=== PATIENT | male | born 1995 | race Caucasian/White ===

== ENCOUNTER → 2020-09-11 14:54 | Outpatient (CLI) | payer OTHER, SELFPAY ==
[2020-09-11] MEDS: COVID-19 VACC #1, MRNA(MOD) 100 MCG/0.5 ML VIAL IM (15:02)
== END ==
PROVIDERS: PCP Student in an Organized Health Care Education/Training Program; Visit Provider Internal Medicine
DX: Z23 Encounter for immunization (principal)
CPT/HCPCS: 0011A; 91301

== ENCOUNTER → 2020-10-09 08:28 | Outpatient (CLI) | payer OTHER, SELFPAY ==
[2020-10-09] MEDS: COVID-19 VACC #2, MRNA(MOD) 100 MCG/0.5 ML VIAL IM (08:32)
== END ==
PROVIDERS: PCP Student in an Organized Health Care Education/Training Program; Visit Provider Internal Medicine
DX: Z23 Encounter for immunization (principal)
CPT/HCPCS: 0012A; 91301

== ENCOUNTER → 2022-10-10 15:42 | Outpatient (CLI) | payer OTHER, SELFPAY ==
--- NOTE | 2022-10-10 15:43 | DI.RAD.S_ITS ---
PROCEDURE: XR HAND LT MIN 3V INDICATIONS: left hand injury Monday/left hand pain TECHNIQUE: 3 views of the hand(s) acquired. COMPARISON: None. FINDINGS: Bones: No fractures or dislocations. Carpal bones are normally aligned. No suspicious bony lesions. Soft tissues: No suspicious soft tissue calcifications. IMPRESSION: Unremarkable left hand radiographs Approved by: Freddie Fabian M.D. on 10/10/2022 at 18:22
== END ==
PROVIDERS: PCP Student in an Organized Health Care Education/Training Program; Referring Provider Student in an Organized Health Care Education/Training Program; Visit Provider Student in an Organized Health Care Education/Training Program
DX: M79.642 Pain in left hand (principal); M79.89 Other specified soft tissue disorders
CPT/HCPCS: 73130

== ENCOUNTER 2023-10-03 09:04 | Emergency (ER) | payer OTHER, SELFPAY ==
[2023-10-03 09:09] VITALS: BP 144/81; PULSE 79; RESP 18; TEMP 36.4; O2SAT 99; BMI 24.3
--- NOTE | 2023-10-03 10:36 | ED.WOUNDLAC ---
HPI - Wound/Laceration General Chief Complaint: Wound/Laceration Stated Complaint: laceration of finger/ R hand Time Seen by Provider: 10/03/23 10:27 Source: patient Mode of arrival: Ambulatory History of Present Illness HPI narrative: Patient here for laceration to the right index finger. Patient is left-handed. Patient accidentally cut his finger with a scraper. Tetanus is up-to-date. Bleeding is controlled. Bases visualized. 1 cm very superficial laceration to the proximal portion of the proximal phalanx of the index finger Related Data Previous Rx's Medication Instructions Recorded citalopram 20 mg tablet (Celexa) 20 mg PO DAILY #90 tabs 05/05/23 guanfacine 3 mg tablet,extended 3 mg PO DAILY #90 tabs 05/05/23 release 24 hr (Intuniv ER) lisdexamfetamine 70 mg capsule 70 mg PO DAILY #30 caps 08/18/23 (Vyvanse) lisdexamfetamine 70 mg capsule 70 mg PO DAILY #30 caps 08/18/23 (Vyvanse) lisdexamfetamine 70 mg capsule 70 mg PO DAILY #30 caps 08/18/23 (Vyvanse) cephalexin 500 mg capsule 500 mg PO TID #15 caps 10/03/23 Allergies Allergy/AdvReac Type Severity Reaction Status Date / Time No Known Drug Allergies Allergy Verified 08/18/23 15:16 Review of Systems Review of Systems Narrative: GENERAL: negative chills, fatigue, malaise, fever, sweats. HEENT: negative sinus pain, ear pain, sore throat RESPIRATORY: negative dyspnea, cough CARDIOVASCULAR: negative chest pain, palpitations GASTROINTESTINAL: negative nausea, vomiting, abdominal pain : negative dysuria, frequency, hematuria MUSCULOSKELETAL: negative muscle or bony pain SKIN: negative rash, skin lesions, positive skin injury NEUROLOGIC: negative weakness, numbness ROS Unobtainable: All systems reviewed & are unremarkable except as noted in HPI and below Patient History Medical History JOHN (generalized anxiety disorder) Male genital ulcer Tremor (~2000) Acne (~2011) Autism spectrum Attention deficit hyperactivity disorder (ADHD), 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) Surgical History Anesthesia Hx of tympanostomy tubes (~1996) Family History Grandfather Age: 76 A-fib Grandmother Age: 76 Cancer Diabetes mellitus Hypertension Grandfather Cancer Diabetes mellitus Hypertension High cholesterol Stroke Grandmother Age: 78 Hypertension High cholesterol Mental health problem Diabetes mellitus Sister Age: 22 Mental health problem Social History Smoking Status: Never smoker Smoking Status: Never smoker alcohol intake frequency: holidays/special occasions only Substance Use Type: does not use Exam Narrative Exam Narrative: GENERAL: in no distress, not toxic not dyspneic HEAD: Normocephalic. EYES: Pupils equal round ENT: Mucous membranes moist. EXTREMITIES: No gross deformities. Examination right hand. There is a very superficial laceration proximal portion thumb side of the proximal phalanx of the index finger it is transverse/oblique. Patient has full active range of motion of the MCP PIP and DP joints of this digit. Base visualized. No fat or muscle or tendon or bony injury seen. No foreign body. No imaging indicated at this time. Bleeding is controlled. NEURO: AOx4. SKIN: Warm and dry PSYCH: Not anxious, is cooperative Initial Vital Signs Initial Vital Signs: Vital Signs Temperature 97.6 F 10/03/23 09:09 Pulse Rate 79 10/03/23 09:09 Respiratory Rate 18 10/03/23 09:09 Blood Pressure 144/81 H 10/03/23 09:09 Pulse Oximetry 99 10/03/23 09:09 Oxygen Delivery Method Room Air 10/03/23 09:09 Procedures Laceration Repair Laceration 1: Time of procedure: 11:01 Site: other (Index finger) Size (cm): 1 Description: linear Depth: simple, single layer Pre-repair: wound explored, irrigated extensively, deep structures intact and cleansed with chlorhexadine Skin layer closed with: other (Dermabond and Steri-Strips) Course Orders Ordered: Discontinued Medications Cephalexin HCl (Cephalexin 250 Mg Capsule) 500 mg PO NOW ONE Stop: 10/03/23 10:46 Last Admin: 10/03/23 11:08 Dose: 500 mg Documented By: FABBY Vital Signs Vital signs: Vital Signs - 8 hr 10/03/23 09:09 Temperature 97.6 F Pulse Rate 79 Respiratory Rate 18 Blood Pressure 144/81 H Pulse Oximetry 99 Oxygen Delivery Method Room Air MDM - Wound/Laceration MDM Narrative Medical decision making narrative: Patient here for laceration to the right index finger. Patient is left-handed. Patient accidentally cut his finger with a scraper. Tetanus is up-to-date. Bleeding is controlled. Bases visualized. 1 cm very superficial laceration to the proximal portion of the proximal phalanx of the index finger After history and exam Keflex wound care Dermabond Steri-Strips aluminum splint, exam is reassuring. No imaging indicated at this time. Low suspicion for fracture or retained foreign body MDM Medical records reviewed: Differential considered: Includes but not limited to laceration tendon injury retained foreign body Imaging studies independently reviewed: None indicated at this time Treatments: Keflex Re-evaluations: Patient tolerated skin repair very well. No strike through bleeding. Wound care instructions provided. Nontoxic at discharge. L and I forms completed. He desires discharge home Discussion: Appropriate for discharge home. Exam is reassuring. This injuries amenable to Dermabond and Steri-Strips and aluminum finger splint. It does not cross over joint. Wound care instructions provided. L and I forms completed. Return precautions reviewed. Antibiotics were started. Patient up-to-date with tetanus. Desires discharge home Diagnosis: Finger laceration Discharge Plan Departure Patient Disposition: Home Clinical Impression: Laceration Instructions: DI for Laceration Repair-Skin Closure Strips, DI for Laceration Repair-Skin Glue, DI for Laceration Repair -- Finger Activity Restrictions/Additional Instructions: Please keep your finger dry for the next 48 hours. You may shower but no soaking of the finger under water. You may trim the paper tape as it curls up. Do not remove them or pale them off. See family doctor in a week for re-evaluation. Call provided primary care referral phone number to establish family doctor. Call [phone]. Prescription antibiotic has been prescribed for you to prevent infection. Please continue this today. Prescription has been sent to your [facility]'s pharmacy Your L and I forms have been completed. No use of the right hand for 5 days to allow for healing. Please keep your finger in splint for the next. However remove it daily to inspect the skin for any redness or discharge or any pain. Return if any changes. Prescriptions: New cephalexin 500 mg capsule 500 mg PO TID Qty: 15 0RF No Action citalopram [Celexa] 20 mg tablet 20 mg PO DAILY Qty: 90 3RF Hold Instructions: trial of 20mg guanfacine [Intuniv ER] 3 mg tablet extended release 24 hr 3 mg PO DAILY Qty: 90 3RF Rx Instructions: Take one tablet once a day. lisdexamfetamine [Vyvanse] 70 mg capsule 70 mg PO DAILY Qty: 30 0RF Rx Instructions: rx 1/3 lisdexamfetamine [Vyvanse] 70 mg capsule 70 mg PO DAILY Qty: 30 0RF Rx Instructions: rx 2/3 lisdexamfetamine [Vyvanse] 70 mg capsule 70 mg PO DAILY Qty: 30 0RF Rx Instructions: rx 3/3 Referrals: Jeri Rojas DO [Primary Care Provider] - Stand Alone Forms: Patient Portal/API, Work Release Note
[2023-10-03] MEDS: cephALEXin 250 MG CAPSULE 500 MG PO (11:08)
[2023-10-03 11:22] VITALS: BP 130/77; PULSE 78; RESP 18; O2SAT 99
== END 2023-10-03 11:23 | disposition home or self-care (01) ==
PROVIDERS: Emergency Provider Emergency Medicine; PCP Family Medicine
DX: S61.210A Laceration without foreign body of right index finger without damage to nail, initial encounter (principal); W27.8XXA Contact with other nonpowered hand tool, initial encounter; Y99.0 Civilian activity done for income or pay
CPT/HCPCS: 12001; 99283

== ENCOUNTER → 2024-09-18 10:16 | Outpatient (CLI) | payer OTHER, SELFPAY ==
[2024-09-18 10:45] LABS: Hemoglobin 15.1 g/dL (13.5-17.5); Mean Corpuscular HGB Conc 34.2 % (30-36); Mean Corpuscular Hemoglobin 29.2 PG (26-34); Mean Corpuscular Volume 85.3 fL (80-100); Platelet Count 283 X10^3/uL (150-400); Red Blood Cell Count 5.16 X10^6/uL (4.5-5.9); Red Cell Distribution Width 12.8 % (11.6-14.8); White Blood Cell Count 4.1 X10^3/uL (4.5-11.0)
[2024-09-18 10:58] LABS: Alanine Aminotransferase 23 IU/L (<50); Albumin 4.9 g/dL (3.5-5.0); Albumin Globulin Ratio 1.8 (1.0-2.8); Alkaline Phosphatase 53 U/L (38-126); Aspartate Aminotransferase 26 IU/L (17-59); Bilirubin Total 0.7 mg/dL (0.2-1.3); Blood Urea Nitrogen 15 mg/dL (9-20); Calcium 9.6 mg/dL (8.4-10.2); Carbon Dioxide 25 mmol/L (22-32); Chloride 103 mmol/L (98-107); Estimated Glomerular Filt Rate > 60 mL/min (>60); Globulin 2.8 g/dL (1.7-4.1); Glucose 108 mg/dL (70-100); HEMOLYSIS < 15 (0-50); Potassium 4.2 mmol/L (3.4-5.1); Sodium 139 mmol/L (137-145); Total Protein 7.7 g/dL (6.3-8.2)
[2024-09-18 11:30] LABS: TSH w/ Reflex to FT4 1.33 uIU/mL (0.47-4.68)
== END ==
PROVIDERS: PCP Family Medicine; Referring Provider Family Medicine; Visit Provider Family Medicine
DX: F90.0 Attention-deficit hyperactivity disorder, predominantly inattentive type (principal); F41.1 Generalized anxiety disorder; R00.2 Palpitations
CPT/HCPCS: 36415; 80053; 84443; 85027

== ENCOUNTER → 2024-09-26 07:44 | Outpatient (CLI) | payer OTHER, SELFPAY | LOC: CAR 07:45 | PROVIDERS: PCP Family Medicine; Referring Provider Family Medicine; Visit Provider Family Medicine | DX: R00.2 Palpitations (principal) | CPT/HCPCS: 93242; 93244 ==